=== PATIENT | male | born 1970 | race Caucasian/White ===

== ENCOUNTER 2022-02-21 09:53 | Outpatient (CLI) | payer OTHER, SELFPAY ==
[2022-02-21 12:49] LABS: Chloride* 105 mmol/L (96-114); Sodium* 140 mmol/L (135-149)
[2022-02-21 12:50] LABS: Potassium* 4.7 mmol/L (3.6-5.1)
[2022-02-21 12:52] LABS: Blood Urea Nitrogen* 15 mg/dL (7-30); Carbon Dioxide* 30 mmol/L (20-32); Cholesterol* 281 mg/dL (90-199); Creatinine* 1.1 mg/dL (0.5-1.5); Estimated Glomerular Filt Rate 81 ml/min
[2022-02-21 12:53] LABS: Calcium* 9.3 mg/dL (8.4-10.6); Glucose* 95 mg/dL (60-115); HDL Cholesterol* 50 mg/dL (>=40); LDL Cholesterol Calculated 199 mg/dL (<100); Triglycerides* 159 mg/dL (40-149)
[2022-02-21 13:23] LABS: PSA Screen* 0.91 ng/mL (0.10-4.00)
== END 2022-02-21 09:54 | disposition home or self-care (01) ==
LOC: LKVREF 10:06
PROVIDERS: PCP Family Medicine; Visit Provider Family Medicine
DX: E78.5 Hyperlipidemia, unspecified (principal); Z12.5 Encounter for screening for malignant neoplasm of prostate; Z13.1 Encounter for screening for diabetes mellitus
CPT/HCPCS: 80048; 80061; 84153